=== PATIENT | female | born 1945 | race Caucasian/White ===

== ENCOUNTER → 2017-12-20 | Outpatient (CLI) | payer MEDICARE, MEDICAID ==
[~2017-12-20] VITALS: Ht 157.5 cm; Wt 68.9 kg
[~2017-12-20] MED LIST: ADENOSINE 58 MG in GIVE UN-DILUTED 0 ML IV ONE
[2017-12-20 10:37] VITALS: BP 151/70
== END | disposition home or self-care (01) ==
LOC: XY 09:10
PROVIDERS: ATTEND Internal Medicine
DX: I48.91 Unspecified atrial fibrillation (principal); R06.02 Shortness of breath; R53.83 Other fatigue
CPT/HCPCS: 78452; 93017; A9500; J0153

== ENCOUNTER → 2018-01-01 | Outpatient (CLI) | payer MEDICARE, MEDICAID | END | disposition home or self-care (01) | LOC: XYW 13:08 | PROVIDERS: ATTEND Internal Medicine | DX: I48.91 Unspecified atrial fibrillation (principal) | CPT/HCPCS: 93306 ==

== ENCOUNTER → 2020-12-14 | Outpatient (CLI) | payer MEDICARE, MEDICAID | END | disposition home or self-care (01) | LOC: XYW 14:41 | PROVIDERS: ATTEND Internal Medicine | DX: I08.8 Other rheumatic multiple valve diseases (principal); R07.9 Chest pain, unspecified | CPT/HCPCS: 93306 ==

== ENCOUNTER → 2022-08-22 | Outpatient (CLI) | payer MEDICARE, MEDICAID | END | disposition home or self-care (01) | LOC: XYW 07:53 | PROVIDERS: ATTEND Internal Medicine | DX: I11.9 Hypertensive heart disease without heart failure (principal); R55 Syncope and collapse | CPT/HCPCS: 93306 ==